=== PATIENT | female | born 1995 | race African-American/Black ===

== ENCOUNTER 2020-12-10 04:17 | Observation (INO) | payer MEDICAID ==
[2020-12-10] MEDS ORDERED: IV RINGERS,LACTATED 1000ML 1,000 ML IV PRN (04:30)
[2020-12-10 04:39] LABS: BILIRUBIN,URINE NEGATIVE (NEG); CLARITY,URINE CLEAR; COLOR,URINE YELLOW; NITRITE,URINE NEGATIVE (NEG); PROTEIN,URINE NEGATIVE (NEG-TRACE)
[2020-12-10 04:47] LABS: BARBITURATES NEG (NEG); BENZODIAZEPINES NEG (NEG); CANNABINOIDS NEG (NEG); COCAINE NEG (NEG); METHADONE NEG (NEG); OPIATES NEG (NEG); PHENCYCLIDINE NEG (NEG)
[2020-12-10 04:55] LABS: BACTERIA,URINE MODERATE /HPF (0-FEW); WBC,URINE >40 /HPF (0-4)
[2020-12-10 04:57] LABS: AMPHETAMINE/METHAMPHETAMINE NEG (NEG)
== END 2020-12-10 07:00 | disposition home or self-care (01) ==
LOC: 3 SO LND 04:17
PROVIDERS: ADMIT Obstetrics & Gynecology; ATTEND Obstetrics & Gynecology
DX: O62.9 Abnormality of forces of labor, unspecified (principal); Z3A.20 20 weeks gestation of pregnancy; Z79.899 Other long term (current) drug therapy
CPT/HCPCS: 59025; 80307; 81001; 87086; G0378; G0379